=== PATIENT | male | born 1990 | race African-American/Black ===

== ENCOUNTER 2016-09-24 16:52 | Emergency (ER) | payer SELFPAY ==
--- NOTE | 2016-09-25 19:48 | ER ---
ADMIT: 09/24/2016 RM/LOC: [facility] MR#: [id number] [facility] [address] [place], [place] [id number] SHIRA EDMONDS [address] [place], [place] [id number] Emergency Room Report SEX: M AGE: 25 : 1990 DATE: 09/24/2016 TIME: 1652 Please refer to my T-sheet for complete H and P. HISTORY OF PRESENT ILLNESS: Briefly, the patient is 25-year-old who comes in, states he was exposed to an STD of his girlfriend. He has had a little bit of drip in the end of his penis. He states he has no other complaints now. He is having 0/10 pain. Here for evaluation. PHYSICAL EXAMINATION: VITAL SIGNS: Stable. He is afebrile. HEENT: Grossly normal. LUNGS: Clear. ABDOMEN: Soft. : He refused to allow me to examine, states everything looks fine down there. He just wanted to be treated. Again, I offered to check him in his region, he refused. At this point, I gave him Rocephin 1 g IM, Zithromax 1 g p.o. and he was ready for discharge. ASSESSMENT: 1. Exposure to sexually transmitted disease. 2. Refused exam here. PLAN: Have sexual partners treated, return if problems. Flagyl 500 t.i.d. for 5 days and avoid alcohol with this medicine. Kei Su MD/ willi JOB #: [id number] CC: Patrick Slater MD, Attending Physician Liam Desai MD, Family Physician
== END 2016-09-24 17:34 | disposition home or self-care (01) ==
LOC: ER 16:52
DX: Z20.2 Contact with and (suspected) exposure to infections with a predominantly sexual mode of transmission (principal); F17.210 Nicotine dependence, cigarettes, uncomplicated